=== PATIENT | female | born 1995 | race Caucasian/White ===

== ENCOUNTER 2017-11-09 07:46 | Emergency (ER) | payer MEDICAID ==
[2017-11-09] MEDS: SOD CHLORIDE 0.9% 1,000 ML IV (08:08)
[2017-11-09 08:09] LABS: URINE BLOOD (Dip) POC Trace-intact (NEGATIVE); URINE GLUCOSE (Dip) POC Negative (NEGATIVE); URINE KETONES (Dip) POC 4+ (NEGATIVE); URINE LEUKOCYTE EST (Dip) POC 2+ (NEGATIVE); URINE NITRITE (Dip) POC Negative (NEGATIVE); URINE TOTAL PROTEIN POC 1+ (NEGATIVE)
[2017-11-09] MEDS: KETOROLAC 30 MG INJ IV (08:17)
[2017-11-09] MEDS: ONDANSETRON 4 MG INJ IV (08:17)
[2017-11-09] MEDS: ACET/BUTAL/CAFF TAB PO (08:57)
== END 2017-11-09 08:36 | disposition home or self-care (01) ==
LOC: FTE 07:46
DX: N39.0 Urinary tract infection, site not specified (principal)
CPT/HCPCS: 81003; 81025; 96374; 96375; 99284-25